=== PATIENT | male | born 1950 | race African-American/Black ===

== ENCOUNTER 2020-04-04 10:03 | Emergency (ER) | payer MEDICARE, SELFPAY ==
--- NOTE | ~2020-04-04 | XR_ITS ---
EXAMINATION: XR chest 2V 04/04/2020 10:24 INDICATION: Cough and fever. PROCEDURE: 2 view chest COMPARISON: Comparison to multiple prior studies sequentially, with oldest reviewed study dated 02/17. FINDINGS: The lungs are clear. The cardiomediastinal silhouette is within normal limits. There are no pleural effusions. There is no pneumothorax suspected. There is a prominent left nipple shadow. IMPRESSION: 1: NO ACUTE CARDIOPULMONARY DISEASE. Reviewed, dictated and finalized at location A. ER TENDER
[2020-04-04 10:09] VITALS: BP 138/70; PULSE 102; RESP 20; TEMP 38; O2SAT 98
--- NOTE | 2020-04-04 10:31 | ED.URI ---
HPI - URI/Sore Throat General Chief Complaint: Upper Respiratory Infection Stated Complaint: cough Source: patient and RN notes reviewed Limitations: no limitations History of Present Illness HPI Narrative: The patient-- non-smoker/nondrinker on no meds yet with no recent doctor visits-- presents with cough. Patient states he has a 2-day history of mildly productive cough. No fever measured , loss of taste/smell, CP, calf pain/edema, rash, S OB, wheezing/sneezing, n/v/d/ dehydration, travel hx, . Symptoms are mild; rapid Covid antigen testing is positive. Patient discussed to follow-up with PMD, began vitamin D, zinc, daily aspirin. Patient also discussed use of dual use medications [like ivermectin], and wants to begin therapy. Related Data Allergies Allergy/AdvReac Type Severity Reaction Status Date / Time No Known Allergies Allergy Verified 04/04/20 10:10 Review of Systems Review of Systems: Narrative: General/Constitutional: No weight loss, POSSIBLE fever Eyes: N0: Redness,discharge Ears/Nose/Throat: No: Epistaxis,ear discharge Respiratory: Denies: Hemoptysis Gastrointestinal: No Vomiting, Bleeding-rectal Skin: No Lumps, eruption Neurologic: No Focal Weakness,Sz Hematologic: Denies: Petechiae/Purpura Psychiatric: No: Suicida ideationl All Other Systems: Reviewed and Negative PMFSH Family History Family History (Updated 01/29/15 @ 14:36 by DOCTOR UNKNOWN) Mother Hypertension Father Patient's father is Sibling Patient's sister is Social History Social History Smoking status: Never smoker Alcohol intake: current Comments At time of signature, agree with nursing past medical, surgical, social and family history. There is no relevant family history pertinent to the presenting complaint Exam Narrative: Exam Narrative: General Appearance: Well appearing, Well nourished, No distress EYE: PERRLA, EOMI, Conjunctiva clear Ears: External ear normal, Auditory canal normal, Nose: Normal nose, Rhinorrhea, Mucousal erythema Mouth/Throat: Normal appearing, Normal lips, MM moist, Uvula midline, Pharyngeal erythema Respiratory: Airway patent, No respiratory distress, Breath sounds equal, decreased BS at bases Cardiovascular: RRR, No JVD Skin: Warm, Dry, Normal color Neurological: A&O x3, Speech clear, CN II-X intact Psychiatric: Normal mood, Normal affect Course Vital Signs Vital signs: Vital Signs Temperature 100.4 F H 04/04/20 10:09 Pulse Rate 102 H 04/04/20 10:09 Respiratory Rate 20 04/04/20 10:09 Blood Pressure 138/70 04/04/20 10:09 Pulse Oximetry 98 04/04/20 10:09 Temperature 100.4 F H 04/04/20 10:09 Pulse Rate 102 H 04/04/20 10:09 Respiratory Rate 20 04/04/20 10:09 Blood Pressure 138/70 04/04/20 10:09 Pulse Oximetry 98 04/04/20 10:09 MDM - URI/Sore Throat Lab Data Labs: Lab Results 04/04/20 Range/Units 10:38 POC SARS CoV-2 Ag Positive (Negative) Discharge Plan Discharge Clinical Impression: COVID-19, Cough Patient Disposition: Home, Self-Care Condition: Stable Instructions: COVID-19 (Coronavirus Disease 2019) (ED) Additional Instructions: See PMD in follow-up When at the pharmacy also pickup pulse ox and vitamin D, vitamin C, zinc, and full dose daily aspirin Prescriptions: New codeine-guaifenesin 10-100 mg/5 mL liquid 7.5 ml PO Q6H PRN (Reason: cough) Qty: 118 RF: 0 ivermectin 3 mg tablet 17,962 mcg PO ONCE Qty: 6 RF: 0 Follow-up/Referrals: Helen Gutierrez MD [Primary Care Provider] - Stand Alone Forms: Work/School Release IP
== END 2020-04-04 11:15 | disposition home or self-care (01) ==
PROVIDERS: Emergency Provider Emergency Medicine; PCP Family Medicine
DX: U07.1 COVID-19 (principal)
CPT/HCPCS: 71046; 87426; 99213; C9803; G0463

== ENCOUNTER 2020-04-21 13:59 | Outpatient (CLI) | payer MEDICARE, SELFPAY ==
[2020-04-21 15:03] LABS: Hematocrit 42.5 % (42.0-52.0); Hemoglobin 13.9 g/dL (14.0-18.0); Mean Corpuscular HGB Conc 32.7 g/dl (32-36); Mean Corpuscular Hemoglobin 27.5 pg (26-34); Mean Platelet Volume 9.4 fl (7.4-10.4); Platelet Count Result 352 k/mm3 (150-375); Red Blood Count 5.06 M/mm3 (4.6-6.20); Red Cell Distribution Width 13.6 % (11.5-14.5)
[2020-04-21 15:15] LABS: Alanine Aminotransferase 25 U/L (4-50); Albumin Level 4.4 g/dL (3.5-5.1); Alkaline Phosphatase 67 U/L (38-126); Anion Gap 7 mmol/L (8-16); Aspartate Amino Transferase 26 U/L (17-59); Bilirubin,Total 0.5 mg/dL (0.2-1.3); Blood Urea Nitrogen 11 mg/dL (9-20); Calcium 9.7 mg/dL (8.4-10.2); Carbon Dioxide 29 mmol/L (22-30); Chloride 103 mmol/L (98-107); Estimated Glomerular Filt Rate > 60; Glucose 94 mg/dL (75-110); Potassium 4.5 mmol/L (3.4-5.0); Sodium 139 mmol/L (137-145)
[2020-04-21 15:45] LABS: Prostate Specific Antigen 2.7 ng/mL (< OR = 4.0)
== END 2020-04-21 14:00 | disposition home or self-care (01) ==
PROVIDERS: PCP Family Medicine; Visit Provider Family Medicine
DX: Z12.5 Encounter for screening for malignant neoplasm of prostate (principal)
CPT/HCPCS: 36415; 80053; 84153; 85027; G0103

== ENCOUNTER 2020-06-04 07:58 | Outpatient (CLI) | payer MEDICARE, SELFPAY | END 2020-06-04 07:59 | disposition home or self-care (01) | LOC: ANHCOVIDVC 07:58 | PROVIDERS: PCP Family Medicine | DX: Z23 Encounter for immunization (principal) | CPT/HCPCS: 0001A; 91300 ==

== ENCOUNTER 2020-06-16 00:47 | Day surgery (SDC) | payer MEDICARE, SELFPAY ==
[2020-06-03 11:32] VITALS: BMI 24.5
[2020-06-16 07:01] VITALS: BP 133/80; PULSE 75; RESP 18; TEMP 36.4; O2SAT 99
[2020-06-16] MEDS: LACTATED RINGERS 1,000 ML 150 ML IV CONT (07:09)
--- NOTE | 2020-06-16 07:51 | WPDANESEPPF ---
Anes - Initial Pre Proc Eval Procedure: Operation Date: 06/16/20 08:30 Proposed Procedures p Screening Colonoscopy - Jp Mitchell MD Date/Time: 06/16/20 07:51 Surgeon: Jp Mitchell MD Pre Op Diagnosis: Neoplasm Screening,Hx of Colon Polyps Patient Data Age: 70 Gender: M Height: 5 ft 11 in Weight: 56.6 kg Last Vital Signs Temp 36.4 C 06/16/20 07:01 Pulse 75 06/16/20 07:01 Resp 18 06/16/20 07:01 BP 133/80 06/16/20 07:01 Pulse Ox 99 06/16/20 07:01 Allergies Allergy/AdvReac Type Severity Reaction Status Date / Time No Known Allergies Allergy Verified 06/16/20 07:00 Home Medications Medication Instructions Recorded Confirmed Type No Home Medications 06/03/20 06/03/20 History Patient hx anesthesia problems: none Family hx anesthesia problems: none PMFSH Past Medical History Medical History Ankle fracture Pneumonia Surgical History Surgical History History of lumbar surgery Family History Family History Mother Hypertension Father Patient's father is Sibling Patient's sister is Social History Social History Social History: Smoking status: Never smoker Second hand tobacco smoke exposure: No Alcohol intake: current Drinks per week: 4 Substance use: never Substance use type: does not use Living arrangements: with family Gender identity (if verbalized by the patient): Male Spiritual care concerns: No Anes - Eval Final PreProcedure Day of Procedure 06/16/20 07:51 Patient weight: normal Heart: regular rate and rhythm Lungs: clear to auscultation Airway: Mallampati scale class II Neurological: alert and oriented Last oral intake: >/= 8 hours ASA classification: I Emergent: no Anesthetic plan: proceed Anesthesia type and monitoring: general GIVS and standard monitoring Informed Consent: The patient's anesthetic plan and its attendant risks and benefits were discussed with the patient/family/POA. Questions were solicited and answers provided to the satisfaction of the patient/family/POA.
--- NOTE | 2020-06-16 08:20 | PM.HPGS ---
History of Present Illness History of Present Illness Consent: Risks, benefits, and alternatives have been discussed and questions answered. Patient agrees to proceed with procedure. Chief complaint: Neoplasm Screening,Hx of Colon Polyps Narrative: Kelly Hdz is a 70 year old male with colon polyps in 2019 Review of Systems Constitutional: Constitutional: Denies headache(s) and Denies weakness Eyes: Eyes: Denies blurry vision ENT: Reports Normal hearing present, Denies headache(s) and Denies neck pain Cardiovascular: Cardiovascular: Denies chest pain and Denies dyspnea Respiratory: Respiratory: Denies dyspnea Gastrointestinal: Gastrointestinal: Reports no additional gastrointestinal complaints Genitourinary: Genitourinary: Denies dysuria Musculoskeletal: Musculoskeletal: Denies neck pain Integumentary/Breasts: Skin/Breast: Denies dry skin Neurologic: Reports Normal hearing present, Denies headache(s) and Denies weakness Psychiatric: Psychiatric: Denies anxiety Endocrine: Endocrine: Denies change in body appearance Hematologic/Lymphatic: Hematologic/Lymphatic: Denies easy bleeding Allergic/Immunologic: Allergic/Immunologic: Denies urticaria PMFSH Past Medical History Medical History Ankle fracture Pneumonia Surgical History Surgical History History of lumbar surgery Family History Family History Mother Hypertension Father Patient's father is Sibling Patient's sister is Social History Social History Social History: Smoking status: Never smoker Second hand tobacco smoke exposure: No Alcohol intake: current Drinks per week: 4 Substance use: never Substance use type: does not use Living arrangements: with family Gender identity (if verbalized by the patient): Male Spiritual care concerns: No Meds Home Medications and Allergies Home Medications Medication Instructions Recorded Confirmed Type No Home Medications 06/03/20 06/03/20 History Allergies Allergy/AdvReac Type Severity Reaction Status Date / Time No Known Allergies Allergy Verified 06/16/20 07:00 Vital Signs Vital Signs - 24 hr 06/16/20 07:01 Temperature 97.6 F Pulse Rate 75 Respiratory Rate 18 Blood Pressure 133/80 Pulse Oximetry 99 Exam Const: General: comfortable and no acute distress HENMT: General nose exam: Normal nares present Eyes: General: appearance normal, both eyes and all related structures Neck: Neck: no JVD Resp: Auscultation: clear to auscultation bilaterally Cardio: Rate: regular rate Rhythm: regular rhythm GI: Inspection: non-distended GI Palp: Yes Soft to palpation Skin: General skin exam: normal color Neuro: General: gait normal Speech: normal speech Extrem: General: normal to inspection Psych: Mental Status: mental status grossly normal Assessment and Plan Assessment and plan (1) Adenomatous colon polyp: Code(s): D12.6 - Benign neoplasm of colon, unspecified Status: Acute Assessment and Plan: due to have another colonoscopy
[2020-06-16 08:39] VITALS: BP 109/70; PULSE 63; RESP 16; O2SAT 97
[2020-06-16 08:49] VITALS: BP 127/87; PULSE 70; RESP 27; O2SAT 100
[2020-06-16 08:59] VITALS: BP 137/95; PULSE 72; RESP 18; O2SAT 97
== END 2020-06-16 09:05 | disposition home or self-care (01) ==
PROVIDERS: PCP Family Medicine; Visit Provider Internal Medicine Gastroenterology
PROC: 0DJD8ZZ Inspection of Lower Intestinal Tract, Via Natural or Artificial Opening Endoscopic (ICD-10-PCS; CPT 45378; principal; 2020-06-16 08:30)
DX: Z12.11 Encounter for screening for malignant neoplasm of colon (principal); D12.2 Benign neoplasm of ascending colon; D12.3 Benign neoplasm of transverse colon; Z86.010 Personal history of colon polyps; K64.8 Other hemorrhoids
CPT/HCPCS: 45385; 88305; J2704; J7120

== ENCOUNTER 2020-06-25 07:55 | Outpatient (CLI) | payer MEDICARE, SELFPAY | END 2020-06-25 07:56 | disposition home or self-care (01) | LOC: ANHCOVIDVC 07:56 | PROVIDERS: PCP Family Medicine | DX: Z23 Encounter for immunization (principal) | CPT/HCPCS: 0002A; 91300 ==

== ENCOUNTER 2021-05-16 15:53 | Emergency (ER) | payer MEDICARE, SELFPAY ==
[2021-05-16 15:56] VITALS: BP 145/77; PULSE 84; RESP 16; TEMP 36.6; O2SAT 100
--- NOTE | 2021-05-16 15:59 | ED.URI ---
HPI - URI/Sore Throat General Chief Complaint: Upper Respiratory Infection Stated Complaint: cough Time Seen by Provider: 05/16/21 16:00 Source: patient, RN notes reviewed and old records reviewed Mode of arrival: ambulatory Limitations: no limitations History of Present Illness HPI Narrative: 70-year-old male patient [facility] complaints of cough starting 2 days ago. Reports clear spit with cough at times. Coughs throughout the day, worse in the evening and when laying down. Reports mild stuffy nose. Denies headache, sore throat, or earache. Denies shortness of breath or difficulty breathing. Appetite is good. Denies fever muscle aches or chills. Reports saw primary care provider last week and felt fine. MD elicited complaint: cough, sore throat, rhinorrhea and nasal congestion Related Data Home Medications Medication Instructions Recorded Confirmed No Home Medications 06/03/20 11/02/20 Allergies Allergy/AdvReac Type Severity Reaction Status Date / Time No Known Allergies Allergy Verified 11/02/20 13:23 Review of Systems Review of Systems: CONSTITUTIONAL: Denies malaise, chills, sweats, or fever. EYES: Denies visual changes, redness, or discharge. ENT: Reports mild sinus congestion. Denies sinus pain, otalgia or sore throat. CARDIOVASCULAR: Denies chest pain, palpitations, or edema. RESPIRATORY: Reports cough with clear spit. Denies dyspnea or shortness of breath. GASTROINTESTINAL: Denies abdominal pain, nausea, vomiting, diarrhea SKIN: Denies rash or itching. MUSCULOSKELETAL: Denies myalgia. NEUROLOGIC: Denies headache. All systems reviewed & are unremarkable except as noted in HPI and below PMFSH Past Medical History Medical History Adenomatous colon polyp Ankle fracture Pneumonia Surgical History Surgical History History of lumbar surgery Family History Family History Mother Hypertension Father Patient's father is Sibling Patient's sister is Social History Social History Social History: Smoking status: Never smoker Second hand tobacco smoke exposure: No Alcohol intake: current Drinks per week: 4 Substance use: never Substance use type: does not use Gender identity (if verbalized by the patient): Male Sexual Orientation (if Verbalized by the Patient): Straight or Heterosexual Spiritual care concerns: No Comments At time of signature, agree with nursing past medical, surgical, social and family history. There is no relevant family history pertinent to the presenting complaint Exam Narrative: GENERAL: Well-appearing, well-nourished, male and in no acute distress. Pleasant and cooperative, casually dressed. HEAD: Normocephalic atraumatic EYES: Conjunctivae clear ENT: Nares patent, turbinates edematous and erythematous, clear discharge. Mucous membranes moist. TM pearly julio with dull light reflex bilaterally; no tragal tenderness. Fluid line bilateral retrotympanic. Oropharynx erythematous without lesions. Tonsils enlarged and without exudate, no drooling, no hoarseness, no trismus, uvula midline. NECK: Supple. Full range of motion. No anterior cervical lymphadenopathy or tenderness with palpation. CHEST: Clear to auscultation anterior posterior, breath sounds equal. No wheezing, rhonchi, rales, or stridor. No respiratory distress, speaks in full sentences. Occasional dry cough. HEART: Regular rate and rhythm. No murmur heard. SKIN: Color appropriate for race, warm, dry, no rash. NEURO: Alert and oriented x3. PSYCH: Normal mood and affect Course Course Emergency Course: Patient is aware of diagnosis, understands and agrees to treatment plan. Anticipatory guidance given. Cesilia
== END 2021-05-16 16:20 | disposition home or self-care (01) ==
PROVIDERS: Emergency Provider Nurse Practitioner Family; PCP Family Medicine
DX: J30.9 Allergic rhinitis, unspecified (principal)
CPT/HCPCS: 99211; G0463

== ENCOUNTER 2021-09-25 12:10 | Emergency (ER) | payer MEDICARE, SELFPAY ==
--- NOTE | 2021-09-25 12:13 | ED.EXTPRO ---
HPI - Extremity Problem General Chief complaint: Extremity Problem,Nontraumatic Stated complaint: left leg swellingRos Time Seen by Provider: 09/25/21 12:39 Source: patient and RN notes reviewed Mode of arrival: ambulatory Limitations: no limitations History of Present Illness HPI Narrative: 71-year-old male presents with concern for pain to the anterior left lower leg, below the knee. He reports he had been having some generalized knee pain and was wearing a knee brace, and the pain and redness began where the brace rubbed against his leg. He reports the pain is exacerbated by weightbearing. He denies injury or trauma. Denies fever, body aches, chills, sweats. He denies any calf pain, redness, warmth MD Complaint: extremity pain Related Data Allergies Allergy/AdvReac Type Severity Reaction Status Date / Time No Known Allergies Allergy Verified 09/25/21 12:38 Review of Systems Review of Systems: CONSTITUTIONAL: Denies malaise, chills, sweats, or fever. CARDIOVASCULAR: Denies chest pain, palpitations, or edema. RESPIRATORY: Denies cough or dyspnea. SKIN: Denies rash or itching, bruising. Reports left anterior lower leg warmth, discoloration, pain MUSCULOSKELETAL: Reports left lower leg pain NEUROLOGIC: Denies numbness, weakness All systems reviewed & are unremarkable except as noted in HPI and below PMFSH Past Medical History Medical History Adenomatous colon polyp Ankle fracture Pneumonia Surgical History Surgical History History of lumbar surgery Family History Family History Mother Hypertension Father Patient's father is Sibling Patient's sister is Social History Social History Social History: Smoking status: Never smoker Second hand tobacco smoke exposure: No Alcohol intake: current Drinks per week: 4 Substance use: never Substance use type: does not use Gender identity (if verbalized by the patient): Male Sexual Orientation (if Verbalized by the Patient): Straight or Heterosexual Spiritual care concerns: No Comments At time of signature, agree with nursing past medical, surgical, social and family history. There is no relevant family history pertinent to the presenting complaint Exam Narrative: GENERAL: Well-appearing, well-nourished, and in no acute distress. HEAD: Normocephalic, atraumatic. EYES: PERRLA, conjunctivae clear NECK: Supple. CHEST: Speaks in full sentences. No respiratory distress. HEART: Regular rate and rhythm. Normal and equal peripheral pulses. EXTREMITIES: Left lower extremity has grossly normal strength and sensation, grossly normal range of motion. No open wounds, no skin tenting, no devitalized tissue or atrophy, no trophic changes, no obvious deformity, alignment normal, nearby joints and structures intact. Distal pulses palpable and equal bilaterally, skin warm, dry, pink. Capillary refill less than 3 seconds. SKIN: Warm, dry, no rash. Erythema, warmth, induration noted to the left lower leg distal to the knee, not involving the knee. No fluctuation noted, no open skin noted NEURO: Alert and oriented x3. PSYCH: Normal mood and affect Course Course Emergency Course: Patient's expressed concern for possible fracture, patient's was interested in x-ray. However today the x-ray machine is malfunctioning. Explained to patient that we can treat for what is likely cellulitis, if they continue to have symptoms they can seek reevaluation. Patient and his are agreeable. Patient is aware of diagnosis, understands and agrees to treatment plan. Anticipatory guidance given. Patient agrees to follow-up as directed and is aware of reasons to seek care at the emergency department. Farhad
[2021-09-25 12:26] VITALS: BP 130/79; PULSE 73; RESP 16; TEMP 36.6; O2SAT 100
== END 2021-09-25 13:16 | disposition home or self-care (01) ==
PROVIDERS: Emergency Provider Nurse Practitioner; PCP Family Medicine
DX: L03.116 Cellulitis of left lower limb (principal)
CPT/HCPCS: 99213; G0463

== ENCOUNTER 2021-09-28 08:43 | Outpatient (CLI) | payer MEDICARE, SELFPAY ==
--- NOTE | ~2021-09-28 | XR_ITS ---
XR tibia fibula LT 2V DATE: 09/28/2021 08:55 INDICATION: History of proximal left tibia and fibula TECHNIQUE: AP and lateral views. COMPARISON: None FINDINGS: No fracture or dislocation, periosteal reaction or bone destruction is detected. Prominent calcifications of the distal Achilles tendon again noted, present on 07/2018. IMPRESSION: -No significant abnormality of the tibia or fibula Reviewed, dictated and finalized at location A.
== END 2021-09-28 08:44 | disposition home or self-care (01) ==
PROVIDERS: PCP Family Medicine; Visit Provider Family Medicine
DX: M79.89 Other specified soft tissue disorders (principal)
CPT/HCPCS: 73590

== ENCOUNTER 2021-10-04 06:43 | Outpatient (CLI) | payer MEDICARE, SELFPAY ==
[2021-10-04 07:04] LABS: Basophils Absolute Auto 0.1 K/mm3 (0.0-0.1); Basophils Percent Auto 0.9 % (0.2-1.2); Eosinophils Absolute Auto 0.3 K/mm3 (0-0.3); Eosinophils Percent Auto 4.2 % (0-4.4); Hematocrit 45.8 % (42.0-52.0); Hemoglobin 14.4 g/dL (14.0-18.0); Immature Granulocyte Absolute 0.09 K/mm3 (0.00-0.031); Immature Granulocyte Percent A 1.4 % (0-0.5); Lymphocytes Absolute Auto 2.46 K/mm3 (0.9-3.2); Lymphocytes Percent Auto 37.2 % (18.3-44.2); Mean Corpuscular HGB Conc 31.4 g/dl (32-36); Mean Corpuscular Hemoglobin 27.6 pg (26-34); Mean Corpuscular Volume 87.7 fl (80-100); Mean Platelet Volume 8.9 fl (7.4-10.4); Monocytes Absolute Auto 0.8 K/mm3 (0.1-0.6); Monocytes Percent Auto 11.8 % (2.6-8.5); Neutrophils Percent Auto 44.5 % (45.5-73.1); Platelet Count Result 197 k/mm3 (150-375); Red Blood Count 5.22 M/mm3 (4.6-6.20); Red Cell Distribution Width 13.7 % (11.5-14.5); White Blood Count 6.6 K/mm3 (4.5-10.0)
[2021-10-04 07:14] LABS: Alanine Aminotransferase 30 U/L (6-50); Albumin Level 4.4 g/dL (3.5-5.1); Alkaline Phosphatase 73 U/L (38-126); Anion Gap 8 mmol/L (8-16); Aspartate Amino Transferase 25 U/L (17-59); Bilirubin,Total 0.2 mg/dL (0.2-1.3); Blood Urea Nitrogen 13 mg/dL (9-20); Calcium 8.8 mg/dL (8.4-10.2); Carbon Dioxide 26 mmol/L (22-30); Chloride 106 mmol/L (98-107); Cholesterol 220 mg/dL (0-200); Estimated Glomerular Filt Rate > 60; Glucose 102 mg/dL (65-110); HDL Direct 38 mg/dL; Potassium 4.3 mmol/L (3.4-5.0); Sodium 140 mmol/L (137-145); Triglycerides 96 mg/dL (<150)
[2021-10-04 07:25] LABS: LDL Cholesterol Direct 125 mg/dL
[2021-10-10 23:32] LABS: PSA, Free 0.39 ng/mL; PSA, Total 2.8 ng/mL (<=4.0); Percent Free Prostate Spec Ag 14 % (>25)
== END 2021-10-04 06:44 | disposition home or self-care (01) ==
PROVIDERS: PCP Family Medicine; Visit Provider Family Medicine
DX: N40.1 Benign prostatic hyperplasia with lower urinary tract symptoms (principal)
CPT/HCPCS: 36415; 80053; 80061; 84153; 84154; 85025

== ENCOUNTER → 2021-11-18 14:23 | Outpatient (CLI) | payer MEDICARE, SELFPAY ==
--- NOTE | ~2021-11-18 | US_ITS ---
EXAMINATION: US soft tissue LE LT DATE: 11/18/2021 14:44 INDICATION: Localized swelling, mass or lump at the left lower limb TECHNIQUE: Multiple grayscale and Doppler ultrasound images of the distal left calf at the region of concern were obtained. COMPARISON: None FINDINGS: The region of concern there is a loculated lenticular 7.2 x 3.5 x 2.2 cm complex fluid collection wit h a few thin curvilinear echogenic septations surrounding regions of very hypoechoic fluid with appea spencer suggestive of organizing hematoma. This located in the deep subcutaneous tissues along what andre ears be the superficial muscular fascia. No internal vascular flow or surrounding hyperemia on color Doppler. IMPRESSION: 1. 7.2 x 3.5 x 2.2 cm complex loculated fluid collection the region of concern with appearance suspic ious for hematoma. Correlate for history of trauma or muscle strain. Differential would include less likely abscess in the appropriate clinical setting. Reviewed, dictated and finalized at location A. IMPRESSION: 1. 7.2 x 3.5 x 2.2 cm complex loculated fluid collection the region of concern with appearance suspicious for hematoma. Correlate for history of trauma or mus kristal strain. Differential would include less likely abscess in the appropriate c linical setting.
== END ==
PROVIDERS: PCP Family Medicine; Visit Provider Physician Assistant
DX: R22.42 Localized swelling, mass and lump, left lower limb (principal)
CPT/HCPCS: 76882

== ENCOUNTER 2022-02-04 14:34 | Outpatient (CLI) | payer MEDICARE, SELFPAY ==
[2022-02-04 15:21] LABS: Alanine Aminotransferase 27 U/L (6-50); Albumin Level 4.7 g/dL (3.5-5.1); Alkaline Phosphatase 86 U/L (38-126); Anion Gap 9 mmol/L (8-16); Aspartate Amino Transferase 25 U/L (17-59); Bilirubin,Total 0.6 mg/dL (0.2-1.3); Blood Urea Nitrogen 12 mg/dL (9-20); Calcium 9.4 mg/dL (8.4-10.2); Carbon Dioxide 29 mmol/L (22-30); Chloride 103 mmol/L (98-107); Estimated Glomerular Filt Rate > 60; Glucose 101 mg/dL (65-110); Potassium 4.5 mmol/L (3.4-5.0); Sodium 141 mmol/L (137-145)
== END 2022-02-04 14:35 | disposition home or self-care (01) ==
LOC: ANHLAB 14:36
PROVIDERS: PCP Family Medicine; Visit Provider Family Medicine
DX: I10 Essential (primary) hypertension (principal); Z79.899 Other long term (current) drug therapy
CPT/HCPCS: 36415; 80053; 82607

== ENCOUNTER 2022-05-25 07:16 | Outpatient (CLI) | payer MEDICARE, SELFPAY ==
[2022-05-25 07:54] LABS: Alanine Aminotransferase 25 U/L (6-50); Albumin Level 4.2 g/dL (3.5-5.1); Alkaline Phosphatase 83 U/L (38-126); Anion Gap 4 mmol/L (8-16); Aspartate Amino Transferase 24 U/L (17-59); Bilirubin,Total 0.6 mg/dL (0.2-1.3); Blood Urea Nitrogen 15 mg/dL (9-20); Calcium 8.5 mg/dL (8.4-10.2); Carbon Dioxide 26 mmol/L (22-30); Chloride 108 mmol/L (98-107); Cholesterol 161 mg/dL (0-200); Estimated Glomerular Filt Rate > 60; Glucose 105 mg/dL (65-110); HDL Direct 38 mg/dL; Potassium 4.1 mmol/L (3.4-5.0); Sodium 138 mmol/L (137-145); Triglycerides 81 mg/dL (<150)
[2022-05-25 08:06] LABS: LDL Cholesterol Direct 91 mg/dL
[2022-05-28 20:54] LABS: PSA, Free 0.39 ng/mL; PSA, Total 2.9 ng/mL (<=4.0); Percent Free Prostate Spec Ag 13 % (>25)
== END 2022-05-25 07:17 | disposition home or self-care (01) ==
PROVIDERS: PCP Family Medicine; Visit Provider Family Medicine
DX: N40.1 Benign prostatic hyperplasia with lower urinary tract symptoms (principal); E78.5 Hyperlipidemia, unspecified
CPT/HCPCS: 36415; 80053; 80061; 84153; 84154

== ENCOUNTER 2023-07-06 06:39 | Day surgery (SDC) | payer MEDICARE, SELFPAY ==
[2023-06-19 11:10] VITALS: BMI 27.1
[2023-07-06 07:19] VITALS: BMI 26.1
[2023-07-06 07:20] VITALS: BP 123/83; PULSE 68; RESP 18; TEMP 36.6; O2SAT 100
--- NOTE | 2023-07-06 07:37 | WPDANESEPPF ---
Anes - Initial Pre Proc Eval Procedure: Operation Date: 07/06/23 08:30 Proposed Procedures p Diagnostic Colonoscopy - Kevin Pereira MD Date/Time: 07/06/23 07:37 Surgeon: Kevin Pereira MD Pre Op Diagnosis: History of colon polyps Patient Data Age: 73 Gender: M Height: 1.8 m Weight: 85 kg Last Vital Signs Temp 36.6 C 07/06/23 07:20 Pulse 68 07/06/23 07:20 Resp 18 07/06/23 07:20 BP 123/83 07/06/23 07:20 Pulse Ox 100 07/06/23 07:20 O2 Del Method Room Air 07/06/23 07:20 Allergies Allergy/AdvReac Type Severity Reaction Status Date / Time No Known Allergies Allergy Verified 07/06/23 07:12 Home Medications Medication Instructions Recorded Confirmed Type azelastine 137 mcg (0.1 %) nasal 137 mcg (0.137 mL) intranasal Q12H 03/21/23 07/06/23 Rx spray aerosol #30 mL benzonatate 100 mg capsule 200 mg PO TID PRN cough #90 caps 03/21/23 07/06/23 Rx fluticasone propionate 50 1 spray intranasal DAILY #16 grams 05/16/23 07/06/23 Rx mcg/actuation nasal spray,suspension Patient hx anesthesia problems: none Family hx anesthesia problems: none Results Review: All pre-operative results and documents have been reviewed as part of the pre-operative evaluation. [facility] Past Medical History Medical History Adenomatous colon polyp Ankle fracture Annual physical exam Bilateral radiating leg pain Chronic pain of both knees Cough COVID-19 COVID-19 Elevated BP without diagnosis of hypertension IFG (impaired fasting glucose) Lipid screening Other chronic pain Pneumonia Pneumonia of right lower lobe due to infectious organism Screening PSA (prostate specific antigen) Surgical History Surgical History History of lumbar surgery Family History Family History Mother Hypertension Father Patient's father is Sibling Patient's sister is Social History Social History Social History: Smoking status: Never smoker Second hand tobacco smoke exposure: No Alcohol intake: current Drinks per week: 3 Alcohol use details: Occasionally Substance use: never Substance use type: does not use Lack of Transportation: No Lack of Food: Never True Current Housing: I Have Housing Concerned About Future Housing: No Difficulty Paying Gas/Electric Bills: No Difficulty Paying for Meds: No Currently Unemployed: No Education: Decline to Answer Difficulty w/ Childcare or Family Care: No Living arrangements: with family Occupation/Education: retired Gender identity (if verbalized by the patient): Male Sexual Orientation (if Verbalized by the Patient): Straight or Heterosexual Spiritual care concerns: No Anes - Eval Final PreProcedure Day of Procedure 07/06/23 07:37 Patient weight: overweight Heart: regular rate and rhythm Lungs: clear to auscultation Airway: Mallampati scale class II Neurological: alert and oriented Last oral intake: >/= 8 hours ASA classification: II Emergent: no Anesthetic plan: proceed Anesthesia type and monitoring: general GIVS and standard monitoring Results Review: All pre-operative results and documents have been reviewed as part of the pre-operative evaluation. Informed Consent: The patient's anesthetic plan and its attendant risks and benefits were discussed with the patient/family/POA. Questions were solicited and answers provided to the satisfaction of the patient/family/POA.
[2023-07-06] MEDS: LACTATED RINGERS 1,000 ML 150 ML IV CONT (07:52)
--- NOTE | 2023-07-06 08:15 | PM.HPGS ---
History of Present Illness History of Present Illness Consent: Risks, benefits, and alternatives have been discussed and questions answered. Patient agrees to proceed with procedure. Chief complaint: History of colon polyps Narrative: Kelly Hdz is a 73 year old male presents for screening colonoscopy. Patient's current weight appetite and bowel movements are normal. Patient denies abdominal pain. He has had no bleeding. Previous colonoscopy in 2020 revealed several adenomatous colon polyps. Patient returns today for screening colonoscopy Review of Systems Review of Systems: All systems reviewed & are unremarkable except as noted in HPI and below PMFSH Past Medical History Medical History Adenomatous colon polyp Ankle fracture Annual physical exam Bilateral radiating leg pain Chronic pain of both knees Cough COVID-19 COVID-19 Elevated BP without diagnosis of hypertension IFG (impaired fasting glucose) Lipid screening Other chronic pain Pneumonia Pneumonia of right lower lobe due to infectious organism Screening PSA (prostate specific antigen) Surgical History Surgical History History of lumbar surgery Family History Family History Mother Hypertension Father Patient's father is Sibling Patient's sister is Social History Social History Social History: Smoking status: Never smoker Second hand tobacco smoke exposure: No Alcohol intake: current Drinks per week: 3 Alcohol use details: Occasionally Substance use: never Substance use type: does not use Lack of Transportation: No Lack of Food: Never True Current Housing: I Have Housing Concerned About Future Housing: No Difficulty Paying Gas/Electric Bills: No Difficulty Paying for Meds: No Currently Unemployed: No Education: Decline to Answer Difficulty w/ Childcare or Family Care: No Living arrangements: with family Occupation/Education: retired Gender identity (if verbalized by the patient): Male Sexual Orientation (if Verbalized by the Patient): Straight or Heterosexual Spiritual care concerns: No Meds Home Medications and Allergies Home Medications Medication Instructions Recorded Confirmed Type azelastine 137 mcg (0.1 %) nasal 137 mcg (0.137 mL) intranasal Q12H 03/21/23 07/06/23 Rx spray aerosol #30 mL benzonatate 100 mg capsule 200 mg PO TID PRN cough #90 caps 03/21/23 07/06/23 Rx fluticasone propionate 50 1 spray intranasal DAILY #16 grams 05/16/23 07/06/23 Rx mcg/actuation nasal spray,suspension Allergies Allergy/AdvReac Type Severity Reaction Status Date / Time No Known Allergies Allergy Verified 07/06/23 07:12 Vital Signs Vital Signs - 24 hr 07/06/23 07:20 Temperature 98 F Pulse Rate 68 Respiratory Rate 18 Blood Pressure 123/83 Pulse Oximetry 100 Oxygen Delivery Room Air Exam Narrative: Physical exam reveals patient to be alert. Vital signs stable. H EENT exam is unremarkable. Patient is anicteric. Lungs are clear to auscultation and percussion. Heart is without murmur or extra sounds. Abdomen sounds are normoactive. Abdomen is Soft nontender no hepatosplenomegaly. Digital external rectal exam is normal. Assessment and Plan Assessment and plan (1) History of colon polyps: Code(s): Z86.010 - Personal history of colonic polyps Status: Acute Assessment and Plan: Patient has a history of adenomatous colon polyps. He returns today for follow-up surveillance colonoscopy.
--- NOTE | 2023-07-06 08:28 | SUR.PREOP ---
LONA CABLE TV INSTALLER, SARITA TORRES BOTH NOTIFIED PT ATE BREAKFAST YESTERDAY, 07/05/23 AT 0930. BOILED EGG AND TOAST
[2023-07-06 08:58] VITALS: BP 100/68; PULSE 70; RESP 14; O2SAT 100
[2023-07-06 09:08] VITALS: BP 112/76; PULSE 61; RESP 16; O2SAT 100
--- NOTE | 2023-07-06 09:09 | WPDANESPN ---
Anes - Prog Note Post-Op Date/Time: 07/06/23 09:09 Cardiovascular status: normal Respiratory status: normal Airway patency: baseline Mental status: baseline Post-Op hydration status: normal Vital Signs: Last Vital Signs Temp 36.6 C 07/06/23 07:20 Pulse 70 07/06/23 08:58 Resp 14 07/06/23 08:58 BP 100/68 07/06/23 08:58 Pulse Ox 100 07/06/23 08:58 O2 Del Method Room Air 07/06/23 08:58 Pain Score (VAS): 0 I/O: Intake & Output 07/05/23 07/06/23 07/06/23 23:59 07:59 15:59 Intake Total 100 Balance 100 Patient Feedback: Patient satisfied with anesthetic care.
[2023-07-06 09:18] VITALS: BP 112/81; PULSE 61; RESP 20; O2SAT 100
== END 2023-07-06 09:28 | disposition home or self-care (01) ==
PROVIDERS: PCP Family Medicine; Visit Provider Internal Medicine Gastroenterology
PROC: 0DJD8ZZ Inspection of Lower Intestinal Tract, Via Natural or Artificial Opening Endoscopic (ICD-10-PCS; CPT 45378; principal; 2023-07-06 08:30)
DX: Z86.010 Personal history of colon polyps (principal); D12.2 Benign neoplasm of ascending colon; D12.5 Benign neoplasm of sigmoid colon; K64.8 Other hemorrhoids
CPT/HCPCS: 45385

== ENCOUNTER 2023-07-06 07:00 | Outpatient (NON) | payer MEDICARE, SELFPAY | END 2023-07-06 07:01 | disposition home or self-care (01) | PROVIDERS: PCP Family Medicine; Visit Provider Internal Medicine Gastroenterology | DX: K63.5 Polyp of colon (principal) | CPT/HCPCS: 88305 ==

== ENCOUNTER 2024-03-16 08:00 | Emergency (ER) | payer MEDICARE, SELFPAY ==
--- NOTE | ~2024-03-16 | XR_ITS ---
EXAMINATION: XR ankle LT min 3V DATE: 03/16/2024 08:33 INDICATION: Left ankle pain and swelling TECHNIQUE: Anteroposterior, oblique, mortise, and lateral views of the left ankle were obtained. COMPARISON: 08/04/2018 FINDINGS: Alignment is normal. Old healed lateral malleolar fracture. No acute fracture. Mild osteoarthritis at a few joints in the midfoot and at the first metatarsophalangeal joint. 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 Soft tissues are otherwise unremarkable. No ankle joint effusion. IMPRESSION: 1. Old healed lateral malleolar fracture. No acute osseous abnormality. 2. 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 3. 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 Reviewed, dictated and finalized at location A. ERY CLERK CHECKING
[2024-03-16 08:15] VITALS: BP 138/91; PULSE 68; RESP 16; TEMP 36.8; O2SAT 100
--- NOTE | 2024-03-16 08:24 | ED.EXTPRO ---
HPI - Extremity Problem General Chief complaint: Extremity Problem,Nontraumatic Stated complaint: left ankle sore Time Seen by Provider: 03/16/24 08:15 Source: patient and RN notes reviewed Mode of arrival: ambulatory Limitations: no limitations History of Present Illness HPI Narrative: Patient presents today complaining of mild pain and swelling to the left lateral ankle times 2-3 days. Denies injury or trauma, numbness or tingling. States he had a fracture in the affected ankle 2-3 years ago. Denies history of gout. He has tried ice and Tylenol with some mild relief. Related Data Home Medications ?Medication ?Instructions ?Recorded ?Confirmed ?Last Taken ?Type No Home Medications 03/16/24 03/16/24 Unknown History Allergies Allergy/AdvReac Type Severity Reaction Status Date / Time No Known Allergies Allergy Verified 03/16/24 08:12 Review of Systems Review of Systems: CONSTITUTIONAL: Denies body aches, fever, chills, or sweats. EYES: Denies visual changes, redness, or discharge. ENT: Denies rhinorrhea, congestion, sore throat, or otalgia. CARDIOVASCULAR: Denies chest pain, palpitations, or edema. RESPIRATORY: Denies cough or dyspnea. GASTROINTESTINAL: Denies abdominal pain, nausea, vomiting, or diarrhea. GENITOURINARY: Denies dysuria or hematuria. SKIN: Denies rash, itching, or wounds. MUSCULOSKELETAL: Denies back pain, or myalgia.+ left ankle pain and swelling NEUROLOGIC: Denies headache, numbness, tingling, or weakness. PSYCH: Denies depression or anxiety. [facility] Past Medical History Medical History Cough Screening PSA (prostate specific antigen) Pneumonia of right lower lobe due to infectious organism Other chronic pain Lipid screening IFG (impaired fasting glucose) Elevated BP without diagnosis of hypertension Chronic pain of both knees Bilateral radiating leg pain Annual physical exam Adenomatous colon polyp Pneumonia Ankle fracture COVID-19 COVID-19 Surgical History Surgical History History of lumbar surgery Family History Family History Mother Hypertension Father Patient's father is Sibling Patient's sister is Social History Social History Social History: Smoking status: Never smoker Second hand tobacco smoke exposure: No Alcohol intake: current Drinks per week: 3 Alcohol use details: Occasionally Substance use: never Substance use type: does not use Lack of Transportation: No Lack of Food: Never True Current Housing: I Have Housing Concerned About Future Housing: No Difficulty Paying Gas/Electric Bills: No Difficulty Paying for Meds: No Currently Unemployed: No Education: Decline to Answer Difficulty w/ Childcare or Family Care: No Living arrangements: with family Occupation/Education: retired Gender identity (if verbalized by the patient): Male Sexual Orientation (if Verbalized by the Patient): Straight or Heterosexual Spiritual care concerns: No Comments At time of signature, I have reviewed and agree with nursing past medical, surgical, social and family history unless otherwise noted. Please see nursing chart for further information. There is no relevant family history pertinent to the presenting complaint Exam Narrative: GENERAL: Well-appearing, well-nourished, and in no acute distress. HEAD: Normocephalic, atraumatic. EYES: EOMI. No redness or drainage. Conjunctivae normal. ENT: Mucous membranes pink and moist. NECK: Normal AROM. CHEST: No respiratory distress. EXTREMITIES: Left ankle: Scant edema to the lateral ankle with mild tenderness to palpation. No tenderness to the remainder of the ankle or foot. Distal sensation intact. Capillary refill normal. Pedal pulse normal. Full range of motion of the ankle in all 10 days. SKIN: Warm, dry, no rash. Capillary refill normal. Normal skin turgor. NEURO: No focal deficits. Alert and oriented x3. Gait steady. PSYCH: Normal affect. No signs of depression or anxiety. Course Course Emergency Course: 1009-patient has been waiting for almost 2 hours for an x-ray report and is still very much down the line to be red. He will be discharged and called with the results of his x-ray report when it is available. Patient agrees with plan. 1658-patient has been notified of his x-ray results. He will follow-up with his PCP or orthopedics for further evaluation of his ankle if symptoms persist. Anticipatory guidance given. Level of Care: Express Care Visit Vital Signs Vital signs: Vital Signs Temperature 98.3 F 03/16/24 08:15 Pulse Rate 68 03/16/24 08:15 Respiratory Rate 16 03/16/24 08:15 Blood Pressure 138/91 H 03/16/24 08:15 Pulse Oximetry 100 03/16/24 08:15 Temperature 98.3 F 03/16/24 08:15 Pulse Rate 68 03/16/24 08:15 Respiratory Rate 16 03/16/24 08:15 Blood Pressure 138/91 H 03/16/24 08:15 Pulse Oximetry 100 03/16/24 08:15 Reviewed MDM - Extremity (Nontraumatic) Differential Diagnosis Differential diagnosis: Likely gout and other (Fracture, ankle sprain) Critical Care Time Critical Care Time Critical Care Time: No Discharge Plan Discharge Clinical Impression: Ankle pain, left Qualifiers: Chronicity: unspecified Qualified Code(s): M25.572 - Pain in left ankle and joints of left foot Patient Disposition: Home, Self-Care Condition: Stable Instructions: Ankle Sprain (ED) Patient Language: [place] Citizen Prescriptions: No Action No Home Medications Follow-up/Referrals: Helen Gutierrez MD [Primary Care Provider] - Time of Disposition: 10:09
== END 2024-03-16 10:09 | disposition home or self-care (01) ==
PROVIDERS: Emergency Provider Nurse Practitioner; PCP Family Medicine
DX: M25.572 Pain in left ankle and joints of left foot (principal); Z86.16 Personal history of COVID-19
CPT/HCPCS: 73610; 99213; G0463

== ENCOUNTER 2024-04-24 11:09 | Outpatient (CLI) | payer MEDICARE, SELFPAY ==
[2024-04-24 11:54] LABS: Uric Acid 5.4 mg/dL (3.5-8.5)
--- OUTSIDE RECORDS SUMMARY | 2024-04-24 12:50 | XMS_ITS | Referral Summary ---
Author [place] [facility] [place] [address] Address [address] [place] [phone] Care Team Providers Care Skin Former Name Role Phone No, Physician Primary Care Provider [phone] Allergies No known active allergies Medications No known medications Active Problems No known active problems Social History Tobacco Use Types Packs/Day Years Used Date Smoking Tobacco: Never Assessed Sex and Gender Information Value Date Recorded Sex Assigned at Not on file Legal Sex Male 6:16 PM ADJUNCT FAC[employer] DEPARTMENT Gender Identity Not on file Sexual Orientation Not on file Last Filed Vital Signs Vital Sign Reading Time Taken Comments Blood Pressure 149/87 04/06/2021 11:16 AM [employer] DEPARTMENT Pulse 98 04/06/2021 11:16 AM [employer] DE[employer] Temperature 36.9 ??C (98.5 ??F) 04/06/2021 11:[address] Respiratory Rate 16 04/06/2021 11:16 AM [employer] DEPARTMENT Oxygen Saturation 98% 04/06/2021 11:16 AM [employer] DEPARTMENT Inhaled Oxygen Concentration - - Weight 89.4 kg (197 lb) 04/06/2021 11:16 AM [employer] DEPART[employer] Height 175.3 cm (5' 9 ) 04/06/2021 11:16 AM [employer] DEPARTMENT Body Mass Index 29.09 04/06/2021 11:16 AM [employer] DEPARTMENT Plan of Treatment Not on file Insurance [facility] MDCR HMO REF Care Teams Skin Former Relationship Specialty Start Date End Date No, Physician PCP - General 04/05/21
--- OUTSIDE RECORDS SUMMARY | 2024-04-24 12:50 | XMS_ITS | Clinical Summary ---
Author Organization [facility] [place] [address] Address [address] [place] [phone] Care Team Providers Care Traffic Personnel Supervisor Name Role Phone No, Physician Primary Care Provider [phone] Allergies No known active allergies Medications No known medications Active Problems No known active problems Social History Tobacco Use Types Packs/Day Years Used Date Smoking Tobacco: Never Assessed Sex and Gender Information Value Date Recorded Sex Assigned at Not on file Legal Sex Male 6:16 PM PELTS SKINNER Gender Identity Not on file Sexual Orientation Not on file Obstetrics History Last Filed Vital Signs Vital Sign Reading Time Taken Comments Blood Pressure 149/87 04/06/2021 11:16 AM PELTS SKINNER Pulse 98 04/06/2021 11:16 AM PELTS SKINNER Temperature 36.9 ??C (98.5 ??F) 04/06/2021 11:[address] Respiratory Rate 16 04/06/2021 11:16 AM PELTS SKINNER Oxygen Saturation 98% 04/06/2021 11:16 AM PELTS SKINNER Inhaled Oxygen Concentration - - Weight 89.4 kg (197 lb) 04/06/2021 11:16 AM PELTS SKINNER Height 175.3 cm (5' 9 ) 04/06/2021 11:16 AM PELTS SKINNER Body Mass Index 29.09 04/06/2021 11:16 AM PELTS SKINNER Plan of Treatment Not on file Insurance [facility] MDCR HMO REF Care Teams Traffic Personnel Supervisor Relationship Specialty Start Date End Date No, Physician PCP - General 04/05/21
== END 2024-04-24 11:10 | disposition home or self-care (01) ==
PROVIDERS: PCP Family Medicine; Visit Provider Family Medicine
DX: M25.572 Pain in left ankle and joints of left foot (principal)
CPT/HCPCS: 36415; 84550

== ENCOUNTER 2024-06-15 08:06 | Outpatient (CLI) | payer MEDICARE, SELFPAY ==
--- OUTSIDE RECORDS SUMMARY | 2024-06-15 08:10 | XMS_ITS | Referral Summary ---
Author Organization [facility] [place] [address] Address [address] [place] [phone] Care Team Providers Care Transportation Museum Helper Name Role Phone No, Physician Primary Care Provider [phone] Allergies No known active allergies Medications No known medications Active Problems No known active problems Social History Tobacco Use Types Packs/Day Years Used Date Smoking Tobacco: Never Assessed Sex and Gender Information Value Date Recorded Sex Assigned at Not on file Legal Sex Male 6:16 PM GORE STITCHER Gender Identity Not on file Sexual Orientation Not on file Last Filed Vital Signs Vital Sign Reading Time Taken Comments Blood Pressure 149/87 04/06/2021 11:16 AM GORE STITCHER Pulse 98 04/06/2021 11:16 AM GORE STITCHER Temperature 36.9 C (98.5 F) 04/06/2021 11:16 AM GORE STITCHER Respiratory Rate 16 04/06/2021 11:16 AM GORE STITCHER Oxygen Saturation 98% 04/06/2021 11:16 AM GORE STITCHER Inhaled Oxygen Concentration - - Weight 89.4 kg (197 lb) 04/06/2021 11:16 AM GORE STITCHER Height 175.3 cm (5' 9 ) 04/06/2021 11:16 AM GORE STITCHER Body Mass Index 29.09 04/06/2021 11:16 AM GORE STITCHER Plan of Treatment Not on file Insurance [facility] MDCR HMO REF Care Teams Transportation Museum Helper Relationship Specialty Start Date End Date No, Physician PCP - General 04/05/21
--- OUTSIDE RECORDS SUMMARY | 2024-06-15 08:10 | XMS_ITS | Continuity of Care Document ---
Author Organization [facility] Address [address] [place] [address] Rd [address] [place] [address] Phone Care Team Providers Care Classics Professor Name Role Phone Ramos PT,MPT,ATC, Ramses Unavailable Unavai lable Procedures Procedure Date PT Evaluation Moderate Complexity Therapeutic Exercise Neuromuscular Re-Ed Changing And Maintaining Body Position-C urrent Changing And Maintaining Body Position-G oal Advance Directives Directive Yes / No Effective Date File Name No Information Encounters Encounter Description Practice Location Reason(s) For Visit Diagnoses Date Provider Providers Copied on Encounter [facility], [address] [place], [place] [address], [place], [place], [id number], [place] tel:[phone] [place] Spinal stenosis, site unspecified [place], [place], . Referring Provider: Brittaney Herbert, [facility] [address], [place], [address]. tel:[phone] Family History Family Member Type Diagnosis Age At Onset No Information Payers Payer name Insurance type Covered libertarian ID Authoriza tikrystle(s) [employer] [id number] CI [id number] Medicare [place] [id number] Social History Type Description Quantity Date Captured Comments Sex Male Smoking Status No Information Chief Complaint And Reason For Visit No Information Reason For Referral Reason For Referral No Information History Of Present Illness Encounter Date Complaint History Of Prese nt Illness No Information Functional Status Date Functional Assessmen t No Information Instructions Date Instruction Additional Infor mation No Information Assessments Type Assessment Date No Information Patient Care Teams Name Effective Dates (start - stop) Status Members No Information
--- OUTSIDE RECORDS SUMMARY | 2024-06-15 08:10 | XMS_ITS | Clinical Summary ---
Author Organization [facility] [place] [address] Address [address] [place] [phone] Care Team Providers Care Color Maker Formulator Name Role Phone No, Physician Primary Care Provider [phone] Allergies No known active allergies Medications No known medications Active Problems No known active problems Social History Tobacco Use Types Packs/Day Years Used Date Smoking Tobacco: Never Assessed Sex and Gender Information Value Date Recorded Sex Assigned at Not on file Legal Sex Male 6:16 PM BOARDING SPECIALIST Gender Identity Not on file Sexual Orientation Not on file Obstetrics History Last Filed Vital Signs Vital Sign Reading Time Taken Comments Blood Pressure 149/87 04/06/2021 11:16 AM BOARDING SPECIALIST Pulse 98 04/06/2021 11:16 AM BOARDING SPECIALIST Temperature 36.9 C (98.5 F) 04/06/2021 11:16 AM BOARDING SPECIALIST Respiratory Rate 16 04/06/2021 11:16 AM BOARDING SPECIALIST Oxygen Saturation 98% 04/06/2021 11:16 AM BOARDING SPECIALIST Inhaled Oxygen Concentration - - Weight 89.4 kg (197 lb) 04/06/2021 11:16 AM BOARDING SPECIALIST Height 175.3 cm (5' 9 ) 04/06/2021 11:16 AM BOARDING SPECIALIST Body Mass Index 29.09 04/06/2021 11:16 AM BOARDING SPECIALIST Plan of Treatment Not on file Insurance [facility] MDCR HMO REF Care Teams Color Maker Formulator Relationship Specialty Start Date End Date No, Physician PCP - General 04/05/21
[2024-06-15 08:29] LABS: Mean Corpuscular HGB Conc 31.8 g/dl (32-36); Mean Corpuscular Hemoglobin 27.9 pg (26-34); Mean Corpuscular Volume 87.8 fl (80-100); Mean Platelet Volume 9.5 fl (7.4-10.4); Platelet Count Result 191 k/mm3 (150-375); Red Blood Count 5.01 M/mm3 (4.6-6.20); Red Cell Distribution Width 13.8 % (11.5-14.5); White Blood Count 6.7 K/mm3 (4.5-10.0)
[2024-06-15 08:31] LABS: Add Urine Microscopic? NO; Appearance Urine Clear (Clear); Bilirubin Urine Negative (Negative); Blood Urine Negative (Negative); Color Urine Yellow (Yellow); Glucose Urine UA Negative (Negative); Ketones Urine Negative (Negative); Leukocyte Esterase Ur Negative LEU/UL (Negative); Nitrate Urine Negative (Negative); Protein Urine Negative (Negative); Specific Grav Ur 1.012 (1.001-1.035); Urobilinogen Urine 0.2 mg/dL (<2.0); pH Urine 5.5 (5.0-9.0)
[2024-06-15 08:39] LABS: Alanine Aminotransferase 24 U/L (6-50); Albumin Level 4.3 g/dL (3.5-5.1); Alkaline Phosphatase 87 U/L (38-126); Anion Gap 8 mmol/L (4-12); Aspartate Amino Transferase 33 U/L (17-59); Bilirubin,Total 0.4 mg/dL (0.2-1.3); Blood Urea Nitrogen 9 mg/dL (9-20); Carbon Dioxide 26 mmol/L (22-30); Chloride 104 mmol/L (98-107); Cholesterol 201 mg/dL (0-200); Estimated Glomerular Filt Rate > 60; Glucose 110 mg/dL (65-110); HDL Direct 41 mg/dL; Potassium 4.2 mmol/L (3.4-5.0); Sodium 138 mmol/L (137-145); Triglycerides 112 mg/dL (<150)
[2024-06-15 08:53] LABS: LDL Cholesterol Direct 122 mg/dL
[2024-06-15 09:10] LABS: Prostate Specific Antigen 6.9 ng/mL (< OR = 4.0)
== END 2024-06-15 08:07 | disposition home or self-care (01) ==
LOC: ANHLAB 08:07
PROVIDERS: PCP Family Medicine; Visit Provider Family Medicine
DX: E78.5 Hyperlipidemia, unspecified (principal); R53.83 Other fatigue; R35.1 Nocturia
CPT/HCPCS: 36415; 80053; 80061; 81003; 84153; 84443; 85027